=== PATIENT | female | born 1955 | race Caucasian/White ===

== ENCOUNTER 2017-02-27 10:09 | Day surgery (SDC) | payer OTHER ==
[2017-02-26 08:48] VITALS: BMI 30.9
[2017-02-27] MEDS ORDERED: Heparin 5,000 UNITS/ML VIAL ONE (11:03)
[2017-02-27] MEDS ORDERED: Fentanyl 100 MCG/2 ML VIAL ONE ×4 (11:21→16:01)
[2017-02-27 11:42] LABS: Anion Gap 14 mmol/L (10-20); BUN (Urea Nitrogen) 14 mg/dL (9.8-20.1); Calc. Creatinine Clearance 101 mL/min (70-130); Calcium 9.6 mg/dL (7.8-10.44); Carbon Dioxide 24 mmol/L (22-29); Chloride 105 mmol/L (98-107); Estimated GFR-MDRD 78; Glucose 94 mg/dL (70-105); Potassium 4.4 mmol/L (3.5-5.1); Sodium 139 mmol/L (136-145)
[2017-02-27] MEDS ORDERED: Sodium Chloride 0.9% 10 ML ONE (11:53)
[2017-02-27] MEDS ORDERED: Bupivacaine 0.25% HCL 30 ML VIAL ONE (11:53)
[2017-02-27] MEDS ORDERED: Gentamicin 80 MG/2 ML VIAL ONE (11:54)
[2017-02-27] MEDS ORDERED: Lidocaine 2% w/Epinephrine 1:200K 20 ML VIAL ONE (12:16)
[2017-02-27] MEDS ORDERED: Lidocaine 1% w/Epinephrine 1:200K 30 ML VIAL ONE (12:16)
[2017-02-27] MEDS ORDERED: Midazolam HCl 2 mg/2 ml Vial ONE (12:28)
[2017-02-27] MEDS ORDERED: CEFAZOLIN/Water 2 GM/20 ML SYRINGE ONE (13:28)
[2017-02-27] MEDS ORDERED: Lidocaine 1% PF 5 ML VIAL ONE (13:30)
[2017-02-27] MEDS ORDERED: Ondansetron HCl/PF 4 MG/2 ML Vial ONE (13:30)
[2017-02-27] MEDS ORDERED: Glycopyrrolate 0.2 MG/ML 5 ML SYRINGE ONE (13:30)
[2017-02-27] MEDS ORDERED: Dexamethasone 20 MG/5 ML VIAL ONE (13:30)
[2017-02-27] MEDS ORDERED: Propofol 200 MG/20 ML VIAL ONE (13:30)
[2017-02-27] MEDS ORDERED: EPINEPHrine 1 MG/ML AMP ONE (13:54)
[2017-02-27] MEDS ORDERED: Bacitracin Zinc Ointment 30 gm TUBE ONE (14:52)
[2017-02-27] MEDS ORDERED: Albuterol Sulfate 1.25 MG/3 ML NEB ONE (15:40)
[2017-02-27] MEDS ORDERED: diphenhydrAMINE 50 MG/ML VIAL ONE (16:34)
--- NOTE | 2017-02-27 19:26 | OP ---
PREOPERATIVE DIAGNOSES: 1. History of left breast cancer. 2. Status post breast reconstruction. 3. Disproportion of reconstruction breast. 4. Pseudoptosis. INDICATIONS FOR PROCEDURE: The patient is a 61-year-old white female status post breast reconstructi on. Her right breast reconstruction is significantly bigger than her left. This makes wearing bra d ifficult. Initially her left breast is deficient in the lower hemisphere where it has lost a great d eal of fat. PROCEDURES PERFORMED: 1. Exchange of right breast implant for a smaller implant (47021). 2. Mastopexy. 2. Fat grafting, left breast. PROCEDURE IN DETAIL: Following induction of adequate anesthesia, the patient was prepped and draped in the usual sterile fashion with supine position. Attention was first turned to the right breast. An inframammary crease incision was made. Dissection was carried sharply down through the subcutaneo us tissue to identify the implant capsule, which was incised. The existing 250 mL implant was remove d. A sizer was placed to determine what would give the best symmetry. 150 mL implant was chosen. T he pocket was copiously irrigated with dilute antibiotic solution as well as dilute Betadine solution prior to putting place in a skin barrier and replace the implant with a [place] smooth round moderate plus implant reference number [id number], serial number [id number]. The capsulotomy made to the im plant exchange was then closed with 2-0 PDS suture. The tunnel of subcutaneous lymphatic tissue to t he implant capsule was closed with 3-0 PDS suture. To correct the patient's pseudoptosis, a transverse wedge of tissue was excised inferiorly to correct the discrepancy in the inframammary crease to nipple distance. This was closed with a combination o f 3-0 PDS suture and 3-0 Monocryl suture. As a part of the breast lift, some of the axilla which had been accessible after her previous reconstructions was tumescent liposuction with an end point of an appropriate skin pinch thickness test and good shape. Attention was turned to the left breast fat grafting. The abdomen was infiltrated with tumescent flu id. After this had had adequate time to take effect, fat was harvested with a 3 mm cannula and allow ed to decant. We allowed to separate. This fluid was decanted and the fat was injected using microd roplet technique through a stab incision. Stab incisions were closed with 5-0 fast gut suture. The patient tolerated the procedure well.
--- NOTE | 2017-02-28 07:18 | EKG ---
Test Reason : PREOP Blood Pressure : / mmHG Vent. Rate : 060 BPM Atrial Rate : 060 BPM P-R Int : 156 ms QRS Dur : 090 ms QT Int : 442 ms P-R-T Axes : 026 -17 005 degrees QTc Int : 442 ms Normal sinus rhythm Minimal voltage criteria for LVH, may be normal variant Nonspecific T wave abnormality Abnormal ECG No previous ECGs available Confirmed by MARCELINO STEPHENS, DR. Wyman ([id number]) on 02/28/2017 7:17:24 AM Referred By: PRISCILLA Confirmed By:DR. Garo BENSON MD
== END 2017-02-27 17:29 | disposition home or self-care (01) ==
LOC: SDC 10:09
PROVIDERS: ATTEND Plastic Surgery
DX: N65.1 Disproportion of reconstructed breast (principal); N65.0 Deformity of reconstructed breast; I10 Essential (primary) hypertension; K21.9 Gastro-esophageal reflux disease without esophagitis; E78.5 Hyperlipidemia, unspecified; F41.9 Anxiety disorder, unspecified; F32.9 Major depressive disorder, single episode, unspecified; Z79.899 Other long term (current) drug therapy; Z88.5 Allergy status to narcotic agent; Z91.048 Other nonmedicinal substance allergy status; Z98.82 Breast implant status; Z90.710 Acquired absence of both cervix and uterus; Z98.890 Other specified postprocedural states; Z85.3 Personal history of malignant neoplasm of breast; Z92.3 Personal history of irradiation
CPT/HCPCS: 80048; 93005; 93010; 96374; A4216; J0171; J1100; J1200; J1580; J1644; J2001; J2250; J2405; J2704; J3010; J3370; J3490; L8600; S0020

== ENCOUNTER 2023-03-12 05:44 | Day surgery (SDC) | payer MEDICARE, OTHER ==
[2023-03-11 09:46] VITALS: BMI 32.5
[~2023-03-12 05:44] MED LIST: EPINEPHrine 0.3 MG in Ophthalmic Irrigation Solution 500 ML IRR SCH
[2023-03-12] MEDS ORDERED: Cyclopentolate 1% Opth Drop 2 ML BOT ONE (06:10)
[2023-03-12] MEDS ORDERED: PHENYLephrine 2.5% Ophth Soln 15 ml Bottle ONE (06:10)
[2023-03-12] MEDS ORDERED: fentaNYL 50 mcg/mL 1 mL Vial ONE ×2 (06:48→07:26)
[2023-03-12] MEDS ORDERED: PROPOFOL 20 ML ONE (06:48)
[2023-03-12] MEDS ORDERED: Midazolam HCl 2 mg/2 ml Vial ONE (06:49)
[2023-03-12] MEDS ORDERED: Bupivacaine 0.75% 10 ML VIAL ONE (07:08)
[2023-03-12] MEDS ORDERED: Maxitrol 0.1% Opth Oint 3.5 GM TUBE ONE (07:08)
[2023-03-12] MEDS ORDERED: Lidocaine 4% PF 5 ML AMP ONE (07:08)
[2023-03-12] MEDS ORDERED: CEFAZOLIN 1 GM VIAL ONE (07:08)
[2023-03-12] MEDS ORDERED: Lidocaine 1% PF 5 ML VIAL ONE (07:08)
[2023-03-12] MEDS ORDERED: Dexamethasone 4 mg/ml Vial ONE (07:26)
== END 2023-03-12 08:10 | disposition home or self-care (01) ==
LOC: SDC 05:44
PROVIDERS: ATTEND Ophthalmology Retina Specialist
PROC: 08T53ZZ Resection of Left Vitreous, Percutaneous Approach (ICD-10-PCS; principal; 2023-03-12)
DX: H43.312 Vitreous membranes and strands, left eye (principal)
CPT/HCPCS: 67041; J3010; J0171; J0690; J1100; J2250; J2704; J3490